=== PATIENT | male | born 1980 | race Caucasian/White ===

== ENCOUNTER → 2023-09-04 06:45 | Outpatient (REF) | payer OTHER, SELFPAY | LOC: PAVMRI 06:45 | PROVIDERS: ATTENDING PHYSICIAN Student in an Organized Health Care Education/Training Program; FAMILY PHYSICIAN Family Medicine | DX: M54.16 Radiculopathy, lumbar region (principal); M54.50 Low back pain, unspecified; M79.18 Myalgia, other site | CPT/HCPCS: 72148; 72195 ==